=== PATIENT | male | born 1990 | race Caucasian/White ===

== ENCOUNTER 2016-12-13 16:26 | Emergency (ER) | payer BC, MEDICAID ==
--- NOTE | 2016-12-13 17:57 | ED ---
Laceration/Wound HPI - HPI Summary HPI Summary: 26M presents with right palmar laceration. He was working on a car and cut his hand on the edge of a machine. The bleeding is control. He has full ROM. His tetanus is up to date. He has minimal pain. He is right handed. He denies any foreign body. - History of Current Complaint Stated Complaint: RT PALM LAC Time Seen by Provider: 12/13/16 16:54 Pain Intensity: 0 PMH/Surg Hx/FS Hx/Imm Hx Endocrine/Hematology History: Denies: Hx Anticoagulant Therapy Cardiovascular History: Denies: Hx Hypertension Infectious Disease History: Denies: Traveled Outside the [place] in Last 30 Days - Family History Known Family History: Positive: Hypertension - Social History Alcohol Use: Rare Substance Use Type: Reports: None Smoking Status (MU): Never Smoked Tobacco Review of Systems Negative: Fever Negative: Chest Pain Negative: Shortness Of Breath Positive: Other - laceration right palm All Other Systems Reviewed And Are Negative: Yes Physical Exam Triage Information Reviewed: Yes Vital Signs On Initial Exam: Initial Vitals Temp Pulse Resp BP Pulse Ox 96.8 F 79 20 137/74 97 12/13/16 16:29 12/13/16 16:29 12/13/16 16:29 12/13/16 16:29 12/13/16 16:29 Vital Signs Reviewed: Yes Appearance: Positive: Well-Appearing Skin: Positive: Warm, Dry, Other - 2cm superficial laceration of right palm Head/Face: Positive: Normal Head/Face Inspection Eyes: Positive: Normal, Conjunctiva Clear Respiratory/Lung Sounds: Positive: Clear to Auscultation, Breath Sounds Present Cardiovascular: Positive: Normal, RRR Musculoskeletal: Positive: Strength/ROM Intact - right hand, Other - good pulses , capillary refill<2 secs Procedures - Laceration/Wound Repair 1 Location: Other - right palm Description: Irregular Anesthesia: Local, 1.0% Length, Depth and Shape: 2cm Irrigated w/ Saline (ccs): 200 Closure: Single Layer Suture Type: Prolene - 4-0 Number of Sutures: 3 Diagnostics - Vital Signs Vital Signs Temp Pulse Resp BP Pulse Ox 12/13/16 16:29 96.8 F 79 20 137/74 97 - Laboratory Lab Statement: Any lab studies that have been ordered have been reviewed, and results considered in the medical decision making process. Laceration Repair Course/Dx - Course Course Of Treatment: 26M presents with right palmar laceration. He was working on a car and cut his hand on the edge of a machine. The bleeding is control. He has full ROM. His tetanus is up to date. cleaned and placed 3 sutures. patient understands and agrees with plan. - Differential Dx Differental Diagnoses: Abrasion, Avulsion, Laceration - Clinical Impression Provider Diagnoses: Laceration of right hand Discharge - Discharge Plan Condition: Good Disposition: HOME Patient Education Materials: Care For Your Stitches (ED) Referrals: Wale KILPATRICK,Rowdy Albright [Primary Care Provider] - Additional Instructions: Take Tylenol or ibuprofen for pain Keep area clean and dry for 48 hours Return to ED or primary in 10-14 days to have sutures removed Return to ED if develop signs of infection such as fever, spreading redness, or pus.
[2016-12-13 18:04] VITALS: BP 131/80
== END 2016-12-13 18:00 | disposition home or self-care (01) ==
LOC: ED 16:26
DX: S61.411A Laceration without foreign body of right hand, initial encounter (principal); W26.9XXA Contact with unspecified sharp object(s), initial encounter; Y93.89 Activity, other specified; Y92.89 Other specified places as the place of occurrence of the external cause
CPT/HCPCS: 12001; 99281